=== PATIENT | female | born 1985 | race African-American/Black ===

== ENCOUNTER 2018-08-05 19:52 | Emergency (ER) | payer OTHER ==
[~2018-08-05] VITALS: Ht 170.2 cm; Wt 77.5 kg
[2018-08-05 20:29] VITALS: Ht 170.2 cm; Wt 77.5 kg
[2018-08-06] MEDS ORDERED: ACETAMINOPHEN 325 MG TAB PO STA (00:36)
[2018-08-06] MEDS ORDERED: CEPH-443 PO (03:34)
[2018-08-06] MEDS ORDERED: ACET500C5 PO (03:34)
[2018-08-06 03:42] VITALS: BP 113/71; PULSE 73; RESP 18
--- NOTE | 2018-08-07 14:02 | ERD ---
ER Documentation Chief Complaint Chief Complaint VAG PAIN X'S 1 DAY, DX WITH YEAST INFECTION 4 DAYS AGO HPI 40-year-old female patient with past medical history presents to the ED stating that patient had vaginal pain. Reports that she is currently . The patient is a A1, ectopic. States that her last menstruation was on June 22, 2017. States that she currently has a stabbing-like pain. Reports that the last time she had this pain, she ectopic . States that she would like to check to rule out diagnosis. Denies any vaginal bleeding, vaginal discharge, dysuria, urgency, frequency, abdominal pain, chest ROS All systems reviewed and are negative except as per history of present illness. Medications Home Meds Active Scripts Acetaminophen* (Tylophen*) 500 Mg Capsule, 1 CAP PO Q6H PRN for PAIN AND OR ELEVATED TEMP, #20 CAP Prov:VANI WEEKS PA-C 08/06/18 Cephalexin* (Keflex*) 500 Mg Capsule, 500 MG PO QID for 7 Days, CAP Prov:VANI WEEKS PA-C 08/06/18 Allergies Allergies: Coded Allergies: No Known Allergy (Unverified , 08/06/18) PMhx/Soc Hx Miscellaneous Medical Probl: Yes (ECTOPIC ) Hx Alcohol Use: No Hx Substance Use: No Hx Tobacco Use: No Smoking Status: Never smoker FmHx Family History: No diabetes, No coronary disease Physical Exam Vitals Vital Signs Date Temp Pulse Resp B/P (MAP) Pulse Ox O2 O2 Flow FiO2 Time Delivery Rate 08/06/18 98.5 73 18 113/71 100 Room Air 03:42 (85) 08/05/18 97.4 79 18 131/60 98 20:29 (83) Physical Exam Const: Ydi-bsl-ygnyydnnm, well-nourished. In no acute distress. Head: Atraumatic, normocephalic Eyes: Normal Conjunctiva without injection. No purulent discharge. ENT: Normal external ear, nose. Moist oropharynx without tonsillar exudates. Non-erythematous pharynx. Uvula midline. No drooling. No trismus. Neck: No cervical midline tenderness. Full range of motion. No meningismus. No cervical lymphadenopathy. No JVD. Resp: Clear to auscultation bilaterally. No wheezing, rhonchi, rales, or c rackles. No accessory muscle use. No retractions. Cardio: Regular rate and rhythm. No murmurs, rubs or gallops. Abd: Soft, nontender, non distended. Normal bowel sounds. No palpable masses. No rebound tenderness. No guarding. Negative McBurney's point. Negative psoas sign. Negative obturator sign. : Normal external with no rashes, vesicles, bleeding. Skin: No petechiae or rashes Back: No midline tenderness. No CVA tenderness. Ext: No cyanosis, or edema. Neur: Awake and alert. Normal gait. Normal coordination. Psych: Normal Mood and Affect Result Diagram: 08/06/18 0100 Results 24 hrs Laboratory Tests Test 08/06/18 00:36 08/06/18 01:00 Urine Color YELLOW Urine Clarity SLIGHTLY CLOUDY Urine pH 5.0 Urine Specific [place] 1.016 Urine Ketones NEGATIVE mg/dL Urine Nitrite NEGATIVE mg/dL Urine Bilirubin NEGATIVE mg/dL Urine Urobilinogen NEGATIVE mg/dL Urine Leukocyte Esterase NEGATIVE Randal/ul Urine Microscopic RBC 3 /HPF Urine Microscopic WBC 2 /HPF Urine Squamous Epithelial Cells FEW /HPF Urine Bacteria MODERATE /HPF Urine Hemoglobin NEGATIVE mg/dL Urine Glucose NEGATIVE mg/dL Urine Total Protein NEGATIVE mg/dl White Blood Count 5.2 10^3/ul Red Blood Count 4.53 10^6/ul Hemoglobin 13.2 g/dl Hematocrit 38.6 % Mean Corpuscular Volume 85.2 fl Mean Corpuscular Hemoglobin 29.1 pg Mean Corpuscular Hemoglobin Concent 34.2 g/dl Red Cell Distribution Width 13.1 % Platelet Count 283 10^3/UL Mean Platelet Volume 10.5 fl Immature Granulocytes % 0.200 % Neutrophils % 53.4 % Lymphocytes % 33.8 % Monocytes % 9.9 % Eosinophils % 2.3 % Basophils % 0.4 % Nucleated Red Blood Cells % 0.0 /100WBC Immature Granulocytes # 0.010 10^3/ul Neutrophils # 2.8 10^3/ul Lymphocytes # 1.8 10^3/ul Monocytes # 0.5 10^3/ul Eosinophils # 0.1 10^3/ul Basophils # 0.0 10^3/ul Nucleated Red Blood Cells # 0.0 10^3/ul Beta HCG, Quantitative 54534.0 mIU/ml Current Medications Medications Dose Sig/Millicent Start Time Status Last (Trade) Ordered Route PRN Stop Time Admin Dose Reason Admin 650 mg ONCE STAT 08/06/18 DC 08/06/18 Acetaminophen PO 00:36 00:49 (Tylenol 08/06/18 00:45 Tab) Procedures/MDM 32-year-old female patient with no significant past medical history presents to ED complaining of vaginal pain that started yesterday. Patient is afebrile and nontoxic-appearing. An ultrasound, beta-hCG, CBC, type and RH, UA was ordered to evaluate patient. CBC: No evidence of severe infection or anemia Urine: No elevation in nitrites, leukocyte esterase, hematuria. Moderate Bacteria. Rh: A positive No indication for Rhogam at this time. beta Hc IMPRESSION: 1. Single live intrauterine with an estimated gestational age of 6 weeks, 1 day. 2. 1.8 cm right corpus luteal cyst. 3. 2.9 cm posterior uterine leiomyoma. Patient's bleeding symptoms have stabilized while in the department. Patient has a single IUP, right cyst, fibroid. Patient will be treated for a urinary tract infection because of the moderate bacteria and few white blood cells noted on her urine test. Low suspicion for symptomatic anemia, ectopic , sepsis, PID, appendicitis, ovarian torsion, tubo-ovarian abscess, surgical abdomen, or other emergent conditions. Patient was educated that there is a risk for threatened . Discharge diagnosis: Vaginal Pain, Encounter for Laboratory Test Discharge medications: Tylenol, Keflex Patient to follow up with [facility] in 2 days for further evaluation and treatment. Patient is to return sooner to the ED for any worsening symptoms. Patient's questions were answered. Patient understood and agreed with discharge plan. Disclaimer: Inadvertent spelling and grammatical errors are likely due to EHR/dictation software use and do not reflect on the overall quality of patient care. Also, please note that the electronic time recorded on this note does not necessarily reflect the actual time of the patient encounter. Departure Diagnosis: Primary Impression: Vaginal pain Additional Impression: Encounter for laboratory test Condition: Stable Patient Instructions: What Are Fibroids?, What Are Ovarian Cysts?, Urinary Tract Infections in Women, : Your First Trimester Changes Referrals: COMMUNITY CLINICS YOU HAVE RECEIVED A MEDICAL SCREENING EXAM AND THE RESULTS INDICATE THAT YOU DO NOT HAVE A CONDITION THAT REQUIRES URGENT TREATMENT IN THE EMERGENCY DEPARTMENT. FURTHER EVALUATION AND TREATMENT OF YOUR CONDITION CAN WAIT UNTIL YOU ARE SEEN IN YOUR DOCTORS OFFICE WITHIN THE NEXT 1-2 DAYS. IT IS YOUR RESPONSIBILITY TO MAKE AN APPOINTMENT FOR FOLOW-UP CARE. IF YOU HAVE A PRIMARY DOCTOR --you should call your primary doctor and schedule an appointment IF YOU DO NOT HAVE A PRIMARY DOCTOR YOU CAN CALL OUR PHYSICIAN REFERRAL HOTLINE AT IF YOU CAN NOT AFFORD TO SEE A PHYSICIAN YOU CAN CHOSE FROM THE FOLLOWING [facility] [address] [facility] [address] [facility] [facility] [address] [facility] [address] [facility] [address] [facility]. [facility] [address] [facility]. [facility] YOU HAVE RECEIVED A MEDICAL SCREENING EXAM AND THE RESULTS INDICATE THAT YOU DO NOT HAVE A CONDITION THAT REQUIRES URGENT TREATMENT IN THE EMERGENCY DEPARTMENT. FURTHER EVALUATION AND TREATMENT OF YOUR CONDITION CAN WAIT UNTIL YOU ARE SEEN IN YOUR DOCTORS OFFICE WITHIN THE NEXT 1-2 DAYS. IT IS YOUR RESPONSIBILITY TO MAKE AN APPOINTMENT FOR FOLOW-UP CARE. IF YOU HAVE A PRIMARY DOCTOR --you should call your primary doctor and schedule and appointment IF YOU DO NOT HAVE A PRIMARY DOCTOR YOU CAN CALL OUR PHYSICIAN REFERRAL HOTLINE AT . IF YOU CAN NOT AFFORD TO SEE A PHYSICIAN YOU CAN CHOSE FROM THE FOLLOWING [facility] INSTITUTIONS: [facility] [address] [place] [address] [facility] [address] [place] [address] [facility] [address] [place] [address] [facility]/SPECIALTIES [facility] [place] [address] [facility] [address] [place] [address] OFFICE FAX JOYCELYN [address]ORENO[address] [address] [address] [address] [place] [address] [address] [facility] [facility] [address], [address], [facility] [address] [address] [facility] [address] [facility] [place] [address] [facility] [address] [place] [address] [address] [facility] [address] - [address] MEAD QUINCY [address], [facility] [address] [address], [facility] [address] [facility]. [address], [facility] [address] [address] [facility] [address] [place], [place] [id number] [facility] Hours: 8:00 am - 5:00 pm Additional Instructions: Call your primary care doctor TOMORROW for an appointment during the next 2-3 days.See the doctor sooner or return here if your condition worsens before your appointment time. VANI WEEKS PA-C Aug 07, 2018 14:02
== END 2018-08-06 03:48 | disposition home or self-care (01) ==
LOC: FTE 19:52
DX: O26.891 Other specified pregnancy related conditions, first trimester (principal); R10.2 Pelvic and perineal pain; Z00.00 Encounter for general adult medical examination without abnormal findings; Z3A.01 Less than 8 weeks gestation of pregnancy
CPT/HCPCS: 76801; 76817; 81001; 84702; 85025; 86900; 86901; Z7610; 36415; 81003